=== PATIENT | female | born 1985 | race Caucasian/White ===

== ENCOUNTER 2017-06-21 09:56 | Emergency (ER) | payer OTHER ==
[~2017-06-21] VITALS: Ht 154.9 cm; Wt 62.1 kg
[2017-06-21 10:00] VITALS: BP_SYST 128
[2017-06-21] MEDS ORDERED: IBUPROFEN 800 MG TABLET PO ONE (10:30)
[2017-06-21 12:45] VITALS: BP_SYST 115
== END 2017-06-21 12:45 | disposition home or self-care (01) ==
LOC: SED 09:56
DX: N83.209 Unspecified ovarian cyst, unspecified side (principal); Z88.1 Allergy status to other antibiotic agents; Z98.51 Tubal ligation status
CPT/HCPCS: 76830-TC; 76857; 99284